=== PATIENT | male | born 1945 | race Caucasian/White ===

== ENCOUNTER → 2017-05-25 | Outpatient (CLI) | payer MEDICARE, OTHER ==
[~2017-05-25] MED LIST: ALBU90I INH; ALBU90OI INH; ALPR.25 PO; ALPR.5 PO; ASPI81CH PO; ASPI81EC; ASPI81EC PO; ATEN100 PO; ATEN50; ATOR80 PO; AZIT250 PO; Acetaminophen650 M1 PO; BENZ100A PO; CARV25 PO; CARV6.25 PO; CHILDREN'S AL12.5 M1 PO; CLAR500; CLOP75 PO; COREG PO; Citalopram HBr10 MG PO; DIGO.125 PO; DIPH50 PO; DOCU100 PO; Diphenhist25 MG PO; FURO20 PO; HYDACE5 PO; LANOXIN125 MCG; LAVAP17G PO; LOSA25 PO; LOSA50 PO; MELA3 PO; NAPR250 PO; Norco 5-325 Ta1 EACH PO; OSEL75CA PO; OXYACE5T PO; PHYT5; POTCHL20ER PO; PRED10 PO; Prednisone20 MG PO; RANI150 PO; SIMV40 PO; SIMV80 PO; SPACER IH; TERB250 PO; TRIA80TC TOP; TROSPIUM CHLORI20 MG PO; VERA80 PO; WARF2.5 PO; WARF5 PO; Zithromax250 MG PO; [UNRECOGNIZED DRUG - REMARK]; [UNRECOGNIZED DRUG - REMARK]
== END | disposition home or self-care (01) ==
LOC: LAB 13:22 → LAB SHORT 13:22
DX: L08.0 Pyoderma (principal)
CPT/HCPCS: 87070; 87205

== ENCOUNTER 2017-06-20 10:22 | Inpatient (IN) | payer MEDICARE, OTHER ==
[~2017-06-20] VITALS: Ht 165.1 cm; Wt 79.4 kg
[~2017-06-20 10:22] MED LIST changes: -Acetaminophen650 M1 PO; -CHILDREN'S AL12.5 M1 PO; -Citalopram HBr10 MG PO; -MELA3 PO; -Norco 5-325 Ta1 EACH PO; -PHYT5
[2017-06-20 13:45] LABS: BASOPHILS ABSOLUTE AUTO 0.01 K/mm3 (0.00-0.23); BASOPHILS PERCENT AUTO 0 % (0-2); EOSINOPHILS PERCENT AUTO 0 % (0-6); Hematocrit 35.7 % (37.0-53.0); Hemoglobin 10.3 g/dL (13.5-17.5); IMMATURE GRAN ABSOLUTE AUTO 0.03 K/mm3 (0.00-0.10); IMMATURE GRAN PERCENT AUTO 0 % (0-1); LYMPHOCYTES ABSOLUTE AUTO 1.03 K/mm3 (0.84-5.20); LYMPHOCYTES PERCENT AUTO 15 % (21-46); MONOCYTES ABSOLUTE AUTO 0.59 K/mm3 (0.16-1.47); MONOCYTES PERCENT AUTO 9 % (4-13); Mean Corpuscular HGB 21.5 pg (26.0-34.0); Mean Corpuscular HGB Conc 28.9 g/dL (31.5-36.5); Mean Corpuscular Volume 75 fL (80-100); Mean Platelet Volume 10.4 fL (9.1-12.4); NEUTROPHILS PERCENT AUTO 76 % (41-73); Platelet Count 149 K/mm3 (150-400); RDW Coefficient Variation 17.2 % (11.7-14.2); RDW Standard Deviation 46.2 fL (35.1-46.3); Red Blood Cell Count 4.79 M/mm3 (4.30-5.90); White Blood Cell Count 6.76 K/mm3 (4.00-11.30)
[2017-06-20 14:04] LABS: Alanine Aminotransfer (ALT/SGP 14 U/L (12-78); Albumin, Blood 3.5 g/dL (3.4-5.0); Albumin/Globulin Ratio 1.1 (0.8-1.8); Alk Phos 102 U/L (50-136); Anion Gap 5 mmol/L (6-16); Aspartate Aminotrans (AST/SGOT 11 U/L (12-37); Bilirubin, Total 0.7 mg/dL (0.1-1.0); Blood Urea Nitrogen 15 mg/dL (8-24); Bun/Creatinine Ratio 13.5 (12.0-20.0); CO2, Blood 27 mmol/L (21-32); Chloride, Blood 109 mmol/L (98-108); Creatinine, Blood 1.11 mg/dL (0.60-1.20); Globulin, Blood 3.3 g/dL (2.2-4.0); Glomerular Filtration Rate >60 (60-); Glucose, Blood 104 mg/dL (70-99); Potassium, Blood 4.1 mmol/L (3.5-5.5); Sodium, Blood 141 mmol/L (136-145); Total Protein, Blood 6.8 g/dL (6.4-8.2)
[2017-06-20 15:10] LABS: International Normalized Ratio 3.7; Prothrombin Time Results 40.1 Sec (9.7-11.5)
[2017-06-21 08:34] LABS: BASOPHILS PERCENT AUTO 0 % (0-2); EOSINOPHILS PERCENT AUTO 0 % (0-6); Hematocrit 36.7 % (37.0-53.0); Hemoglobin 10.8 g/dL (13.5-17.5); IMMATURE GRAN ABSOLUTE AUTO 0.03 K/mm3 (0.00-0.10); IMMATURE GRAN PERCENT AUTO 0 % (0-1); LYMPHOCYTES ABSOLUTE AUTO 1.11 K/mm3 (0.84-5.20); LYMPHOCYTES PERCENT AUTO 16 % (21-46); MONOCYTES ABSOLUTE AUTO 0.72 K/mm3 (0.16-1.47); MONOCYTES PERCENT AUTO 11 % (4-13); Mean Corpuscular HGB 21.8 pg (26.0-34.0); Mean Corpuscular HGB Conc 29.4 g/dL (31.5-36.5); Mean Corpuscular Volume 74 fL (80-100); Mean Platelet Volume 10.1 fL (9.1-12.4); NEUTROPHILS ABSOLUTE AUTO 5.01 K/mm3 (1.96-9.15); NEUTROPHILS PERCENT AUTO 73 % (41-73); Platelet Count 142 K/mm3 (150-400); RDW Coefficient Variation 17.2 % (11.7-14.2); RDW Standard Deviation 45.8 fL (35.1-46.3); Red Blood Cell Count 4.95 M/mm3 (4.30-5.90); White Blood Cell Count 6.87 K/mm3 (4.00-11.30)
[2017-06-21 08:46] LABS: International Normalized Ratio 1.74; Prothrombin Time Results 18.4 Sec (9.7-11.5)
[2017-06-21 08:52] LABS: Alanine Aminotransfer (ALT/SGP 15 U/L (12-78); Albumin, Blood 3.6 g/dL (3.4-5.0); Albumin/Globulin Ratio 1.1 (0.8-1.8); Alk Phos 99 U/L (50-136); Anion Gap 5 mmol/L (6-16); Aspartate Aminotrans (AST/SGOT 13 U/L (12-37); Blood Urea Nitrogen 17 mg/dL (8-24); CO2, Blood 25 mmol/L (21-32); Chloride, Blood 109 mmol/L (98-108); Globulin, Blood 3.2 g/dL (2.2-4.0); Glomerular Filtration Rate >60 (60-); Glucose, Blood 93 mg/dL (70-99); Sodium, Blood 139 mmol/L (136-145); Total Protein, Blood 6.8 g/dL (6.4-8.2)
[2017-06-21 15:18] LABS: International Normalized Ratio 1.53; Prothrombin Time Results 16.1 Sec (9.7-11.5)
[2017-06-22 05:43] LABS: BASOPHILS ABSOLUTE AUTO 0.01 K/mm3 (0.00-0.23); BASOPHILS PERCENT AUTO 0 % (0-2); EOSINOPHILS PERCENT AUTO 0 % (0-6); Hematocrit 36.3 % (37.0-53.0); Hemoglobin 10.5 g/dL (13.5-17.5); IMMATURE GRAN ABSOLUTE AUTO 0.02 K/mm3 (0.00-0.10); IMMATURE GRAN PERCENT AUTO 0 % (0-1); LYMPHOCYTES ABSOLUTE AUTO 1.12 K/mm3 (0.84-5.20); LYMPHOCYTES PERCENT AUTO 16 % (21-46); MONOCYTES ABSOLUTE AUTO 0.68 K/mm3 (0.16-1.47); MONOCYTES PERCENT AUTO 10 % (4-13); Mean Corpuscular HGB 21.6 pg (26.0-34.0); Mean Corpuscular HGB Conc 28.9 g/dL (31.5-36.5); Mean Corpuscular Volume 75 fL (80-100); Mean Platelet Volume 10.4 fL (9.1-12.4); NEUTROPHILS ABSOLUTE AUTO 5.25 K/mm3 (1.96-9.15); NEUTROPHILS PERCENT AUTO 74 % (41-73); Platelet Count 139 K/mm3 (150-400); RDW Coefficient Variation 17.2 % (11.7-14.2); RDW Standard Deviation 46.3 fL (35.1-46.3); Red Blood Cell Count 4.87 M/mm3 (4.30-5.90); White Blood Cell Count 7.08 K/mm3 (4.00-11.30)
[2017-06-22 05:57] LABS: International Normalized Ratio 1.27; Prothrombin Time Results 13.3 Sec (9.7-11.5)
[2017-06-22 06:03] LABS: Alanine Aminotransfer (ALT/SGP 14 U/L (12-78); Albumin, Blood 3.5 g/dL (3.4-5.0); Albumin/Globulin Ratio 1.2 (0.8-1.8); Alk Phos 93 U/L (50-136); Anion Gap 7 mmol/L (6-16); Aspartate Aminotrans (AST/SGOT 13 U/L (12-37); Bilirubin, Total 0.9 mg/dL (0.1-1.0); Blood Urea Nitrogen 17 mg/dL (8-24); Bun/Creatinine Ratio 15.7 (12.0-20.0); CO2, Blood 24 mmol/L (21-32); Calcium, Blood 8.1 mg/dL (8.5-10.1); Chloride, Blood 109 mmol/L (98-108); Creatinine, Blood 1.08 mg/dL (0.60-1.20); Glomerular Filtration Rate >60 (60-); Glucose, Blood 82 mg/dL (70-99); Potassium, Blood 4.1 mmol/L (3.5-5.5); Sodium, Blood 140 mmol/L (136-145); Total Protein, Blood 6.5 g/dL (6.4-8.2)
[2017-06-23 05:14] LABS: BASOPHILS ABSOLUTE AUTO 0.01 K/mm3 (0.00-0.23); BASOPHILS PERCENT AUTO 0 % (0-2); EOSINOPHILS PERCENT AUTO 0 % (0-6); Hematocrit 31.2 % (37.0-53.0); Hemoglobin 9.2 g/dL (13.5-17.5); IMMATURE GRAN ABSOLUTE AUTO 0.05 K/mm3 (0.00-0.10); IMMATURE GRAN PERCENT AUTO 0 % (0-1); LYMPHOCYTES ABSOLUTE AUTO 0.79 K/mm3 (0.84-5.20); LYMPHOCYTES PERCENT AUTO 5 % (21-46); MONOCYTES ABSOLUTE AUTO 1.39 K/mm3 (0.16-1.47); MONOCYTES PERCENT AUTO 9 % (4-13); Mean Corpuscular HGB 21.9 pg (26.0-34.0); Mean Corpuscular HGB Conc 29.5 g/dL (31.5-36.5); Mean Corpuscular Volume 74 fL (80-100); Mean Platelet Volume 11.4 fL (9.1-12.4); NEUTROPHILS ABSOLUTE AUTO 12.52 K/mm3 (1.96-9.15); NEUTROPHILS PERCENT AUTO 85 % (41-73); Platelet Count 147 K/mm3 (150-400); RDW Coefficient Variation 17.4 % (11.7-14.2); RDW Standard Deviation 46.2 fL (35.1-46.3); White Blood Cell Count 14.76 K/mm3 (4.00-11.30)
[2017-06-23 05:30] LABS: International Normalized Ratio 1.17; Prothrombin Time Results 12.2 Sec (9.7-11.5)
[2017-06-23 05:46] LABS: Anion Gap 7 mmol/L (6-16); Blood Urea Nitrogen 20 mg/dL (8-24); Bun/Creatinine Ratio 18.7 (12.0-20.0); CO2, Blood 23 mmol/L (21-32); Calcium, Blood 7.9 mg/dL (8.5-10.1); Chloride, Blood 106 mmol/L (98-108); Creatinine, Blood 1.07 mg/dL (0.60-1.20); Glomerular Filtration Rate >60 (60-); Glucose, Blood 105 mg/dL (70-99); Potassium, Blood 4.6 mmol/L (3.5-5.5); Sodium, Blood 136 mmol/L (136-145)
[2017-06-24 04:51] LABS: International Normalized Ratio 1.51; Prothrombin Time Results 15.9 Sec (9.7-11.5)
[2017-06-25 05:09] LABS: International Normalized Ratio 1.89; Prothrombin Time Results 20.1 Sec (9.7-11.5)
[2017-06-26 04:36] LABS: International Normalized Ratio 2.51; Prothrombin Time Results 26.9 Sec (9.7-11.5)
[2017-10-01] MEDS ORDERED: WARF2.5 PO (18:26)
[2017-10-01] MEDS ORDERED: CLOP75 PO (18:26)
[2017-10-01] MEDS ORDERED: Citalopram HBr10 MG PO (18:27)
[2017-10-01] MEDS ORDERED: MELA3 PO (18:27)
[2017-10-01] MEDS ORDERED: Acetaminophen650 M1 PO (18:28)
[2017-10-01] MEDS ORDERED: CHILDREN'S AL12.5 M1 PO (18:29)
[2017-10-29] MEDS ORDERED: Norco 5-325 Ta1 EACH PO (11:42)
== END 2017-06-26 11:00 | DRG 470 ==
LOC: ORSCMMR 10:22 → SURS 10:22 → ORSCMMR 17:11 → SURS 17:11 → ORD 06-22 07:30 → ORSCMMR 06-22 07:30 → SURS 06-26 11:00 → ORD 06-29 11:00
PROVIDERS: Hospitalist; Orthopaedic Surgery; Pharmacist
PROC: 0SRC0J9 Replacement of Right Knee Joint with Synthetic Substitute, Cemented, Open Approach (ICD-10-PCS; principal; 2017-06-22 07:30)
DX: M17.11 Unilateral primary osteoarthritis, right knee (principal); I48.2 Chronic atrial fibrillation; F41.9 Anxiety disorder, unspecified; I10 Essential (primary) hypertension; Z79.01 Long term (current) use of anticoagulants; Z86.73 Personal history of transient ischemic attack (TIA), and cerebral infarction without residual deficits; Z88.0 Allergy status to penicillin; Z88.8 Allergy status to other drugs, medicaments and biological substances; Z79.02 Long term (current) use of antithrombotics/antiplatelets; Z79.82 Long term (current) use of aspirin; Z79.899 Other long term (current) drug therapy; Z95.2 Presence of prosthetic heart valve
CPT/HCPCS: 36415; 71046; 73560-RT; 74230; 80048; 80053; 82947; 85025; 85610; 85730; 88300; 92610; 92611; 94762; 97110; 97116; 97161; 97166; 97530; 97535; C1713; C1776; G8978; G8979; G8987; G8988; G8996; G8997; G8998; J0171; J0735; J1100; J1644; J1885; J2370; J2405; J2795; J3010; J7040; J7120

== ENCOUNTER 2017-06-30 11:38 | Inpatient (IN) | payer MEDICARE, OTHER ==
[~2017-06-30] VITALS: Ht 185.4 cm; Wt 74.7 kg
[2017-06-30] MEDS ORDERED: PHYT5 (11:53)
[2017-06-30 12:31] LABS: BASOPHILS ABSOLUTE AUTO 0.01 K/mm3 (0.00-0.23); BASOPHILS PERCENT AUTO 0 % (0-2); EOSINOPHILS PERCENT AUTO 0 % (0-6); Hematocrit 25.2 % (37.0-53.0); Hemoglobin 7.3 g/dL (13.5-17.5); IMMATURE GRAN ABSOLUTE AUTO 0.14 K/mm3 (0.00-0.10); IMMATURE GRAN PERCENT AUTO 1 % (0-1); LYMPHOCYTES ABSOLUTE AUTO 0.53 K/mm3 (0.84-5.20); LYMPHOCYTES PERCENT AUTO 5 % (21-46); MONOCYTES PERCENT AUTO 10 % (4-13); Mean Corpuscular HGB 21.9 pg (26.0-34.0); Mean Corpuscular Volume 76 fL (80-100); Mean Platelet Volume 10.5 fL (9.1-12.4); NEUTROPHILS ABSOLUTE AUTO 8.65 K/mm3 (1.96-9.15); NEUTROPHILS PERCENT AUTO 84 % (41-73); Platelet Count 223 K/mm3 (150-400); RDW Coefficient Variation 18.9 % (11.7-14.2); RDW Standard Deviation 51.2 fL (35.1-46.3); Red Blood Cell Count 3.33 M/mm3 (4.30-5.90); White Blood Cell Count 10.33 K/mm3 (4.00-11.30)
[2017-06-30 12:42] LABS: International Normalized Ratio 2.14; Prothrombin Time Results 22.8 Sec (9.7-11.5)
[2017-06-30 12:49] LABS: Alanine Aminotransfer (ALT/SGP 28 U/L (12-78); Albumin, Blood 2.9 g/dL (3.4-5.0); Albumin/Globulin Ratio 0.8 (0.8-1.8); Alk Phos 306 U/L (50-136); Anion Gap 7 mmol/L (6-16); Aspartate Aminotrans (AST/SGOT 28 U/L (12-37); Bilirubin, Total 1.7 mg/dL (0.1-1.0); Blood Urea Nitrogen 24 mg/dL (8-24); Bun/Creatinine Ratio 23.5 (12.0-20.0); CO2, Blood 26 mmol/L (21-32); Calcium, Blood 7.9 mg/dL (8.5-10.1); Chloride, Blood 103 mmol/L (98-108); Creatinine, Blood 1.02 mg/dL (0.60-1.20); Globulin, Blood 3.5 g/dL (2.2-4.0); Glomerular Filtration Rate >60 (60-); Glucose, Blood 104 mg/dL (70-99); Potassium, Blood 4.7 mmol/L (3.5-5.5); Sodium, Blood 136 mmol/L (136-145); Total Protein, Blood 6.4 g/dL (6.4-8.2); Troponin I <0.015 ng/mL (0.000-0.040)
[2017-06-30 12:52] LABS: Thyroid Stimulating Hormone 0.929 uIU/mL (0.360-4.800)
[2017-07-01 00:51] LABS: Hemoglobin 8.8 g/dL (13.5-17.5)
[2017-07-01 04:04] LABS: BASOPHILS ABSOLUTE AUTO 0.01 K/mm3 (0.00-0.23); BASOPHILS PERCENT AUTO 0 % (0-2); EOSINOPHILS PERCENT AUTO 0 % (0-6); Hematocrit 29.7 % (37.0-53.0); Hemoglobin 9.1 g/dL (13.5-17.5); IMMATURE GRAN ABSOLUTE AUTO 0.24 K/mm3 (0.00-0.10); IMMATURE GRAN PERCENT AUTO 3 % (0-1); LYMPHOCYTES ABSOLUTE AUTO 0.59 K/mm3 (0.84-5.20); LYMPHOCYTES PERCENT AUTO 7 % (21-46); MONOCYTES PERCENT AUTO 11 % (4-13); Mean Corpuscular HGB 23.4 pg (26.0-34.0); Mean Corpuscular HGB Conc 30.6 g/dL (31.5-36.5); Mean Corpuscular Volume 76 fL (80-100); Mean Platelet Volume 10.3 fL (9.1-12.4); NEUTROPHILS ABSOLUTE AUTO 7.21 K/mm3 (1.96-9.15); NEUTROPHILS PERCENT AUTO 80 % (41-73); NRBC ABSOLUTE 0.03 K/mm3 (0.00-0.02); NRBC Auto 0.3 /100 WBC (0.0-0.2); Platelet Count 227 K/mm3 (150-400); RDW Coefficient Variation 18.1 % (11.7-14.2); RDW Standard Deviation 49.4 fL (35.1-46.3); Red Blood Cell Count 3.89 M/mm3 (4.30-5.90); White Blood Cell Count 9.05 K/mm3 (4.00-11.30)
[2017-07-01 04:14] LABS: International Normalized Ratio 1.6; Prothrombin Time Results 16.9 Sec (9.7-11.5)
[2017-07-01 04:32] LABS: Albumin, Blood 2.9 g/dL (3.4-5.0); Anion Gap 8 mmol/L (6-16); Blood Urea Nitrogen 24 mg/dL (8-24); Bun/Creatinine Ratio 20.7 (12.0-20.0); CO2, Blood 26 mmol/L (21-32); Calcium, Blood 7.9 mg/dL (8.5-10.1); Chloride, Blood 102 mmol/L (98-108); Creatinine, Blood 1.16 mg/dL (0.60-1.20); Glomerular Filtration Rate >60 (60-); Glucose, Blood 91 mg/dL (70-99); Phosphorus, Blood 2.9 mg/dL (2.5-4.9); Potassium, Blood 4.4 mmol/L (3.5-5.5); Sodium, Blood 136 mmol/L (136-145)
[2017-07-01 13:18] LABS: Hematocrit 31.5 % (37.0-53.0); Hemoglobin 9.5 g/dL (13.5-17.5)
[2017-07-01 18:49] LABS: Hematocrit 29.8 % (37.0-53.0); Hemoglobin 9.1 g/dL (13.5-17.5)
[2017-07-02 04:33] LABS: BASOPHILS PERCENT AUTO 0 % (0-2); EOSINOPHILS PERCENT AUTO 0 % (0-6); Hematocrit 30.1 % (37.0-53.0); Hemoglobin 9.1 g/dL (13.5-17.5); IMMATURE GRAN ABSOLUTE AUTO 0.15 K/mm3 (0.00-0.10); IMMATURE GRAN PERCENT AUTO 2 % (0-1); LYMPHOCYTES ABSOLUTE AUTO 0.83 K/mm3 (0.84-5.20); LYMPHOCYTES PERCENT AUTO 9 % (21-46); MONOCYTES ABSOLUTE AUTO 0.95 K/mm3 (0.16-1.47); MONOCYTES PERCENT AUTO 10 % (4-13); Mean Corpuscular HGB 23.3 pg (26.0-34.0); Mean Corpuscular HGB Conc 30.2 g/dL (31.5-36.5); Mean Corpuscular Volume 77 fL (80-100); NEUTROPHILS ABSOLUTE AUTO 7.64 K/mm3 (1.96-9.15); NEUTROPHILS PERCENT AUTO 80 % (41-73); Platelet Count 265 K/mm3 (150-400); RDW Coefficient Variation 18.7 % (11.7-14.2); RDW Standard Deviation 51.8 fL (35.1-46.3); White Blood Cell Count 9.57 K/mm3 (4.00-11.30)
[2017-07-02 04:57] LABS: Albumin, Blood 2.8 g/dL (3.4-5.0); Anion Gap 11 mmol/L (6-16); Blood Urea Nitrogen 22 mg/dL (8-24); Bun/Creatinine Ratio 21.2 (12.0-20.0); CO2, Blood 26 mmol/L (21-32); Calcium, Blood 7.9 mg/dL (8.5-10.1); Chloride, Blood 104 mmol/L (98-108); Creatinine, Blood 1.04 mg/dL (0.60-1.20); Glomerular Filtration Rate >60 (60-); Glucose, Blood 81 mg/dL (70-99); Phosphorus, Blood 2.5 mg/dL (2.5-4.9); Potassium, Blood 4.3 mmol/L (3.5-5.5); Sodium, Blood 141 mmol/L (136-145)
[2017-07-02 14:17] LABS: Stool Occult Blood Guaiac 1 Neg (Neg)
== END 2017-07-02 15:43 | DRG 812 ==
LOC: ER 11:38 → PCU 11:39 → SURS 14:42 → PCU 14:42 → SURS 16:59
PROVIDERS: Emergency Medicine; Family Medicine; Internal Medicine Gastroenterology
PROC: 0DB68ZX Excision of Stomach, Via Natural or Artificial Opening Endoscopic, Diagnostic (ICD-10-PCS; principal; 2017-07-02 07:30)
PROC: 0DBL8ZX Excision of Transverse Colon, Via Natural or Artificial Opening Endoscopic, Diagnostic (ICD-10-PCS; 2017-07-02 07:30)
DX: D62 Acute posthemorrhagic anemia (principal); I27.20 Pulmonary hypertension, unspecified; I48.91 Unspecified atrial fibrillation; K92.2 Gastrointestinal hemorrhage, unspecified; M96.840 Postprocedural hematoma of a musculoskeletal structure following a musculoskeletal system procedure; I85.00 Esophageal varices without bleeding; I10 Essential (primary) hypertension; I25.2 Old myocardial infarction; F41.9 Anxiety disorder, unspecified; I25.10 Atherosclerotic heart disease of native coronary artery without angina pectoris; K31.7 Polyp of stomach and duodenum; K57.30 Diverticulosis of large intestine without perforation or abscess without bleeding; K64.8 Other hemorrhoids; K63.5 Polyp of colon; Z66 Do not resuscitate; Z96.651 Presence of right artificial knee joint; Z86.010 Personal history of colon polyps; Z79.01 Long term (current) use of anticoagulants; Z79.82 Long term (current) use of aspirin; Z86.73 Personal history of transient ischemic attack (TIA), and cerebral infarction without residual deficits; Z95.1 Presence of aortocoronary bypass graft; Z79.899 Other long term (current) drug therapy; Z88.0 Allergy status to penicillin; Z88.8 Allergy status to other drugs, medicaments and biological substances; Z95.2 Presence of prosthetic heart valve; Z95.0 Presence of cardiac pacemaker
CPT/HCPCS: 36415; 36430; 76882; 80053; 80069; 82270; 82607; 82746; 84443; 84484; 85014; 85018; 85025; 85610; 85730; 86850; 86900; 86901; 86923; 88305; 88342; 93005; 93010; 97116; 97162; 97530; 99285; G8978; G8979; J1644; J7030; J7040; J7120; P9016

== ENCOUNTER 2017-08-06 08:48 | Day surgery (SDC) | payer MEDICARE, OTHER ==
[~2017-08-06] VITALS: Ht 165.1 cm; Wt 75.8 kg
[~2017-08-06 08:48] MED LIST changes: +PHYT5
== END 2017-08-06 22:52 | disposition home or self-care (01) ==
LOC: ORSCMMR 08:48 → ORSCSDS 09:30 → ORSCMMR 22:52
PROVIDERS: Orthopaedic Surgery
PROC: 2W1QX6Z Compression of Right Lower Leg using Pressure Dressing (ICD-10-PCS; principal; 2017-08-06 10:15)
PROC: 0SJC3ZZ Inspection of Right Knee Joint, Percutaneous Approach (ICD-10-PCS; principal; 2017-08-06 10:15)
DX: T81.89XA Other complications of procedures, not elsewhere classified, initial encounter (principal); T84.53XA Infection and inflammatory reaction due to internal right knee prosthesis, initial encounter; Z96.651 Presence of right artificial knee joint; I10 Essential (primary) hypertension; I25.2 Old myocardial infarction; Z95.1 Presence of aortocoronary bypass graft; Z95.2 Presence of prosthetic heart valve; Z95.0 Presence of cardiac pacemaker; E78.5 Hyperlipidemia, unspecified; I48.91 Unspecified atrial fibrillation; N40.0 Benign prostatic hyperplasia without lower urinary tract symptoms; J45.909 Unspecified asthma, uncomplicated; Z79.01 Long term (current) use of anticoagulants; Z79.899 Other long term (current) drug therapy
CPT/HCPCS: 87070; 87075; 87205; J1100; J2370; J2405; J7120

== ENCOUNTER 2019-02-02 11:21 | Observation (INO) | payer MEDICARE, OTHER ==
[~2019-02-02] VITALS: Ht 165.1 cm; Wt 79.4 kg
[2019-02-02 12:19] LABS: BASOPHILS PERCENT AUTO 0 % (0-2); EOSINOPHILS PERCENT AUTO 0 % (0-6); Hematocrit 29.5 % (37.0-53.0); Hemoglobin 7.6 g/dL (13.5-17.5); IMMATURE GRAN ABSOLUTE AUTO 0.04 K/mm3 (0.00-0.10); IMMATURE GRAN PERCENT AUTO 1 % (0-1); LYMPHOCYTES ABSOLUTE AUTO 0.85 K/mm3 (0.84-5.20); LYMPHOCYTES PERCENT AUTO 13 % (21-46); MONOCYTES ABSOLUTE AUTO 0.78 K/mm3 (0.16-1.47); MONOCYTES PERCENT AUTO 12 % (4-13); Mean Corpuscular HGB 17.5 pg (26.0-34.0); Mean Corpuscular HGB Conc 25.8 g/dL (31.5-36.5); Mean Corpuscular Volume 68 fL (80-100); Mean Platelet Volume 10.6 fL (9.1-12.4); NEUTROPHILS ABSOLUTE AUTO 4.73 K/mm3 (1.96-9.15); NEUTROPHILS PERCENT AUTO 74 % (41-73); Platelet Count 182 K/mm3 (150-400); RDW Coefficient Variation 20.2 % (11.7-14.2); RDW Standard Deviation 48.6 fL (35.1-46.3); Red Blood Cell Count 4.35 M/mm3 (4.30-5.90)
[2019-02-02 12:42] LABS: Alanine Aminotransfer (ALT/SGP 9 U/L (12-78); Albumin, Blood 3.7 g/dL (3.4-5.0); Albumin/Globulin Ratio 1.2 (0.8-1.8); Alk Phos 105 U/L (50-136); Anion Gap 5 mmol/L (6-16); Aspartate Aminotrans (AST/SGOT 11 U/L (12-37); Bilirubin, Total 0.6 mg/dL (0.1-1.0); Blood Urea Nitrogen 16 mg/dL (8-24); CO2, Blood 28 mmol/L (21-32); Chloride, Blood 109 mmol/L (98-108); Creatinine, Blood 1.14 mg/dL (0.60-1.20); Globulin, Blood 3.2 g/dL (2.2-4.0); Glomerular Filtration Rate >60 (60-); Glucose, Blood 81 mg/dL (70-99); Potassium, Blood 4.1 mmol/L (3.5-5.5); Sodium, Blood 142 mmol/L (136-145); Total Protein, Blood 6.9 g/dL (6.4-8.2); Troponin I 0.017 ng/mL (0.000-0.040)
[2019-02-02] MEDS ORDERED: Aspir 8181 MG PO (14:31)
[2019-02-02] MEDS ORDERED: Ventolin/Prove6.7 GM INH (14:32)
[2019-02-02] MEDS ORDERED: CYAN1000I IM (14:32)
[2019-02-02] MEDS ORDERED: Neurontin 100100 MG PO (14:33)
[2019-02-02] MEDS ORDERED: LANOXIN125 MCG PO (14:34)
[2019-02-02] MEDS ORDERED: CARV25 PO (14:34)
[2019-02-02] MEDS ORDERED: CLOP75 PO (14:35)
[2019-02-02 14:49] LABS: IMMATURE RETIC FRACTION 21.4 % (2.3-16.0); RETIC HGB EQUIVALENT 17.3 pg (28.20-36.60); RETICULOCYTE ABSOLUTE 0.0592 M/mm3 (0.0200-0.1100); RETICULOCYTE COUNT PERCENT 1.44 % (0.50-2.50)
[2019-02-02] MEDS ORDERED: WARF2.5 PO (14:53)
[2019-02-02] MEDS ORDERED: WARF5 PO (14:53)
[2019-02-02] MEDS ORDERED: LOSA50 PO (14:55)
[2019-02-02] MEDS ORDERED: ATOR80 PO (14:55)
[2019-02-02] MEDS ORDERED: ALPR.25 PO (14:56)
[2019-02-02] MEDS ORDERED: Citalopram HBr10 MG PO (14:56)
[2019-02-02] MEDS ORDERED: MELA3 PO (14:56)
[2019-02-02 14:57] LABS: International Normalized Ratio 3.21; Prothrombin Time Results 30.6 Sec (9.7-11.5)
[2019-02-02] MEDS ORDERED: ARTHRITIS PAIN650 MG PO (14:57)
[2019-02-02] MEDS ORDERED: Allergy25 M1 PO (14:58)
[2019-02-02] MEDS ORDERED: FURO20 PO (14:59)
[2019-02-02 15:00] LABS: Percent Saturation 2.2 % (20.0-50.0)
[2019-02-02] MEDS ORDERED: Klor-Con 1010 MEQ PO (15:00)
[2019-02-02] MEDS ORDERED: AMLO10 PO (15:01)
[2019-02-02] MEDS ORDERED: ANTI ITCH TOP (15:02)
--- NOTE | 2019-02-02 18:15 | NUR ---
SHIFT SUMMARY: PT ARRIVED TO ROOM AND WAS A STAND BY ASSIST TO TRANSFER FROM THE [facility] [place] TO THE BED. HE ARRIVED WITH BLOOD INFUSING. UPON INITIAL ASSESSMENT VSS AND LUNGS WERE CLEAR. AFTER 15 MINUTES LUNGS WERE WHEEZING AND PT WAS MILDY SOB. BLOOD WAS STOPPED AND CHARGE NURSE NOTIFIED. RATE WAS SLOWED. DR MAI WAS NOTIFIED AND GAVE ORDERS FOR 1 TIME DOSE OF IV LASIX. LASIX WAS GIVEN ORDERED, HOB WAS ELEVATED AND UPON NEXT ASSESSMENT WHEEZING HAD SUBSIDED AND PT NO LONGER HAD ANY SOB. THIS NURSE HAS OMID AT BEDSIDE SINCE ADMISSION. CHARGE NURSE WAS NOTIFED OF PT IMPROVEMENT AND BLOOD CONTINUES TO RUN ORDERED. PT HAS NO OTHER S/S OF AVERSE REACTION TO THE BLOOD. PT REMAINS A/O X 4 AT BASELINE AND HAS NO C/O PAIN, HE IS VERY PLEASANT AND COOPERATIVE WITH HIS CARE. HE USES THE URINAL AT THE BEDSIDE WITH X 1 ASSIST.
[2019-02-03 02:48] LABS: Hematocrit 32.9 % (37.0-53.0); Hemoglobin 8.9 g/dL (13.5-17.5)
[2019-02-03 03:00] LABS: International Normalized Ratio 2.84; Prothrombin Time Results 27.4 Sec (9.7-11.5)
--- NOTE | 2019-02-03 07:26 | NUR ---
SHIFT SUMMARY PT A/O NO C/O PAIN. RECEIVED 1 UNIT OF BLOOD WITH NO S/S OF TRANSFUSION REACTION AFTER THE TIME OF 1929. NO C/O CP. SBA C URINAL USE C FREQUENCY AND URGENCY BUT STATES IT'S KIND OF USUAL FOR HIM C THE FREQUENCY. ABLE TO SLEEP ON AND OFF T/O NIGHT. CALL LIGHT IN REACH.
[2019-02-03] MEDS ORDERED: FERSU300 PO (10:54)
--- NOTE | 2019-02-03 11:48 | NUR ---
Patient is sitting on a chair and alert. Patient openly shares about his family unit complications, his spiritual journey and his current medical issues. Patient tells me that he is being discharged soon and that he is excited to go home feeling much better. I listen empathically, hear confession and provide pastoral job counselor and prayer. Patient responds well and shows signs of catharsis and increased peace. Patient voices appreciation for the visit.
--- NOTE | 2019-02-03 12:40 | NUR ---
DISCHARGE SUMMARY PATIENT IS PLEASANT. ALERT AND ORIENTED. ALL INFORMATION GIVEN TO THE PATIENT PRIOR TO DISCHARGE. MEDICATIONS SENT TO THE PHARMACY. PATIENT IS BROUGHT TO THE CAR BY NURSE. IV HAD BEEN REMOVED.
== END 2019-02-03 12:25 | disposition home or self-care (01) ==
LOC: ER 11:21 → MEDS 11:22 → ENPENDDIS 02-03 10:29 → MEDS 02-03 12:25
PROVIDERS: Emergency Medicine; ADMIT Hospitalist
DX: D50.9 Iron deficiency anemia, unspecified (principal); R07.89 Other chest pain; I25.2 Old myocardial infarction; I10 Essential (primary) hypertension; Z95.2 Presence of prosthetic heart valve; Z88.0 Allergy status to penicillin; Z88.1 Allergy status to other antibiotic agents; Z88.8 Allergy status to other drugs, medicaments and biological substances; Z79.02 Long term (current) use of antithrombotics/antiplatelets; Z79.82 Long term (current) use of aspirin; Z79.899 Other long term (current) drug therapy
CPT/HCPCS: 36415; 36430; 71046; 80053; 82272; 82728; 83540; 83550; 84484; 85014; 85018; 85025; 85045; 85610; 86850; 86900; 86901; 86923; 93005; 93010; 99285-25; J1750; J1940; J2916; J7030; P9016

== ENCOUNTER 2019-04-09 05:32 | Observation (INO) | payer MEDICARE, OTHER ==
[~2019-04-09] VITALS: Ht 165.1 cm; Wt 72.6 kg
[~2019-04-09 05:32] MED LIST changes: +AMLO10 PO; +ANTI ITCH TOP; +ARTHRITIS PAIN650 MG PO; +Allergy25 M1 PO; +Aspir 8181 MG PO; +CYAN1000I IM; +Citalopram HBr10 MG PO; +FERSU300 PO; +Klor-Con 1010 MEQ PO; +LANOXIN125 MCG PO; +MELA3 PO; +Neurontin 100100 MG PO; +Ventolin/Prove6.7 GM INH
[2019-04-09 06:04] LABS: Hematocrit 38.7 % (37.0-53.0); Hemoglobin 11.5 g/dL (13.5-17.5); Mean Corpuscular HGB 24.1 pg (26.0-34.0); Mean Corpuscular HGB Conc 29.7 g/dL (31.5-36.5); Mean Corpuscular Volume 81 fL (80-100); Mean Platelet Volume 9.8 fL (9.1-12.4); Platelet Count 150 K/mm3 (150-400); RDW Standard Deviation 64.1 fL (35.1-46.3); Red Blood Cell Count 4.77 M/mm3 (4.30-5.90); White Blood Cell Count 7.28 K/mm3 (4.00-11.30)
[2019-04-09] MEDS ORDERED: AMLO5 (06:10)
[2019-04-09 06:21] LABS: BAND PERCENT MAN 7 % (0-8); BASOPHILS PERCENT MAN 0 % (0-2); EOSINOPHILS PERCENT MAN 0 % (0-6); LYMPHOCYTES PERCENT MAN 11 % (21-46); MONOCYTES ABSOLUTE MAN 0.58 K/mm3 (0.16-1.47); MONOCYTES PERCENT MAN 8 % (4-13); NEUTROPHILS ABSOLUTE MAN 5.89 K/mm3 (1.96-9.15); SEG NEUTROPHILS PERCENT MAN 74 % (41-73); TOTAL CELLS COUNTED 100
[2019-04-09 06:24] LABS: Alanine Aminotransfer (ALT/SGP 18 U/L (12-78); Albumin, Blood 3.8 g/dL (3.4-5.0); Albumin/Globulin Ratio 1.2 (0.8-1.8); Alk Phos 123 U/L (50-136); Anion Gap 5 mmol/L (6-16); Aspartate Aminotrans (AST/SGOT 16 U/L (12-37); Blood Urea Nitrogen 15 mg/dL (8-24); Bun/Creatinine Ratio 14.7 (12.0-20.0); CO2, Blood 28 mmol/L (21-32); Calcium, Blood 8.1 mg/dL (8.5-10.1); Chloride, Blood 106 mmol/L (98-108); Creatinine, Blood 1.02 mg/dL (0.60-1.20); Globulin, Blood 3.3 g/dL (2.2-4.0); Glomerular Filtration Rate >60 (60-); Glucose, Blood 101 mg/dL (70-99); Potassium, Blood 4.2 mmol/L (3.5-5.5); Sodium, Blood 139 mmol/L (136-145); Total Protein, Blood 7.1 g/dL (6.4-8.2); Troponin I <0.015 ng/mL (0.000-0.040)
[2019-04-09 11:25] LABS: International Normalized Ratio 3.27; Prothrombin Time Results 32.7 Sec (9.7-11.5)
[2019-04-09 12:03] LABS: Adenovirus Not Detected (NOT DETECT); Bordetella pertussis Not Detected (NOT DETECT); Chlamydophila pneumoniae Not Detected (NOT DETECT); Coronavirus 229E Not Detected (NOT DETECT); Coronavirus HKU1 Not Detected (NOT DETECT); Coronavirus NL63 Not Detected (NOT DETECT); Coronavirus OC43 Not Detected (NOT DETECT); Human Metapneumovirus Not Detected (NOT DETECT); Human Rhinovirus/Enterovirus Not Detected (NOT DETECT); Influenza A Not Detected (NOT DETECT); Influenza B Not Detected (NOT DETECT); Mycoplasma pneumoniae Not Detected (NOT DETECT); Parainfluenza Virus 1 Not Detected (NOT DETECT); Parainfluenza Virus 2 Not Detected (NOT DETECT); Parainfluenza Virus 3 Not Detected (NOT DETECT); Parainfluenza Virus 4 Not Detected (NOT DETECT); Respiratory Syncytial Virus Not Detected (NOT DETECT)
--- NOTE | 2019-04-09 18:03 | NUR ---
NEW ADMIT TODAY, PATIENT STATES HE IS FEELING MUCH BETTER THIS EVENING. SOB AND ANXIETY HAVE REOLVED. LUNGS CLEAR AND DIMINISHED IN BASES, MAINTAINING SATS ON RA. USES URINAL INDEPENDENTLY AT BEDSIDE, URINATES FREQUENTLY. TOLERATING REGULAR DIET. SKIN INTACT. A-FIB ON TELE, OCCASIONALLY PACED. CALM AND COOPERATIVE WITH CARE, CALLS APPROPRIATELY FOR ASSISTANCE.
[2019-04-10 05:21] LABS: BASOPHILS ABSOLUTE AUTO 0.01 K/mm3 (0.00-0.23); BASOPHILS PERCENT AUTO 0 % (0-2); EOSINOPHILS PERCENT AUTO 0 % (0-6); Hematocrit 35.9 % (37.0-53.0); Hemoglobin 10.8 g/dL (13.5-17.5); IMMATURE GRAN ABSOLUTE AUTO 0.04 K/mm3 (0.00-0.10); IMMATURE GRAN PERCENT AUTO 0 % (0-1); LYMPHOCYTES ABSOLUTE AUTO 0.43 K/mm3 (0.84-5.20); LYMPHOCYTES PERCENT AUTO 4 % (21-46); MONOCYTES ABSOLUTE AUTO 0.33 K/mm3 (0.16-1.47); MONOCYTES PERCENT AUTO 3 % (4-13); Mean Corpuscular HGB 23.9 pg (26.0-34.0); Mean Corpuscular HGB Conc 30.1 g/dL (31.5-36.5); Mean Corpuscular Volume 79 fL (80-100); Mean Platelet Volume 9.4 fL (9.1-12.4); NEUTROPHILS ABSOLUTE AUTO 9.04 K/mm3 (1.96-9.15); NEUTROPHILS PERCENT AUTO 92 % (41-73); Platelet Count 150 K/mm3 (150-400); RDW Coefficient Variation 21.8 % (11.7-14.2); RDW Standard Deviation 62.1 fL (35.1-46.3); Red Blood Cell Count 4.52 M/mm3 (4.30-5.90); White Blood Cell Count 9.85 K/mm3 (4.00-11.30)
[2019-04-10 05:42] LABS: Anion Gap 5 mmol/L (6-16); Blood Urea Nitrogen 19 mg/dL (8-24); Bun/Creatinine Ratio 20.1 (12.0-20.0); CO2, Blood 28 mmol/L (21-32); Chloride, Blood 106 mmol/L (98-108); Creatinine, Blood 0.94 mg/dL (0.60-1.20); Glomerular Filtration Rate >60 (60-); Glucose, Blood 138 mg/dL (70-99); Sodium, Blood 139 mmol/L (136-145)
[2019-04-10 05:44] LABS: Prothrombin Time Results 49.4 Sec (9.7-11.5)
[2019-04-10 05:47] LABS: International Normalized Ratio 5.06
--- NOTE | 2019-04-10 07:00 | NUR ---
ASSUMED CARE OF PT- BEDSIDE REPORT COMPLETED WITH NIGHT RN GABRIELA. PER REPORT PT C/O UNTREATED BPH. PT STATED HE IS UP 5-6 TIMES PER NIGHT. PT IS CONTINENT OF BOWLE AND BLADDER AND IS INDEPENDENT AT THE BEDSIDE WITH A URINAL. PT HAS NO C/O PAIN. PT ON RA. POSSIBLE DISCHARGE TODAY.
[2019-04-10] MEDS ORDERED: ALBU2.5V5 INH (14:05)
[2019-04-10] MEDS ORDERED: GUAI600T33 PO (14:08)
[2019-04-10] MEDS ORDERED: COMBIVENT RESPIM4 GM (14:13)
[2019-04-10] MEDS ORDERED: FLUT1DIS5 INH (14:15)
[2019-04-10] MEDS ORDERED: Prednisone10 MG PO (14:17)
--- NOTE | 2019-04-10 16:00 | NUR ---
DISCHARGE NOTE- PT WAS GIVEN VERBAL AND WRITTEN DISCHARGE INSTRUCTIONS AND ACKNOWLEDGED UNDERSTANDING OF THEM. MEDS FAXED TO [facility] PER PT REQUEST. PT HAS ORDR FOR [facility]. GUY TO DELIVER WHEN THE PT ARRIVES HOME. PT IS AWARE.
== END 2019-04-10 16:49 | disposition home or self-care (01) ==
LOC: ER 05:32 → MEDS 05:33
PROVIDERS: Emergency Medicine; Nurse Practitioner Acute Care; ADMIT Family Medicine
DX: J44.1 Chronic obstructive pulmonary disease with (acute) exacerbation (principal); J96.01 Acute respiratory failure with hypoxia; I10 Essential (primary) hypertension; I25.10 Atherosclerotic heart disease of native coronary artery without angina pectoris; I25.2 Old myocardial infarction; F41.1 Generalized anxiety disorder; I48.20 Chronic atrial fibrillation, unspecified; R79.1 Abnormal coagulation profile; Z95.0 Presence of cardiac pacemaker; Z95.2 Presence of prosthetic heart valve; Z96.651 Presence of right artificial knee joint; Z90.49 Acquired absence of other specified parts of digestive tract; Z95.1 Presence of aortocoronary bypass graft; Z79.82 Long term (current) use of aspirin; Z79.01 Long term (current) use of anticoagulants; Z79.02 Long term (current) use of antithrombotics/antiplatelets; Z79.51 Long term (current) use of inhaled steroids; Z79.52 Long term (current) use of systemic steroids; Z79.899 Other long term (current) drug therapy; Z88.0 Allergy status to penicillin; Z88.6 Allergy status to analgesic agent; Z88.8 Allergy status to other drugs, medicaments and biological substances
CPT/HCPCS: 0099U; 36415; 71046; 80048; 80053; 83880; 84484; 85025; 85610; 93005; 93010; 94640; 94644; 94760; 96374; 96376; 99285-25; G0378; J2920; J2930

== ENCOUNTER 2019-04-24 13:23 | Emergency (ER) | payer MEDICARE, OTHER ==
[~2019-04-24] VITALS: Ht 165.1 cm; Wt 72.6 kg
[~2019-04-24 13:23] MED LIST changes: +ALBU2.5V5 INH; +AMLO5; +COMBIVENT RESPIM4 GM; +FLUT1DIS5 INH; +GUAI600T33 PO; +Prednisone10 MG PO
[2019-04-24 15:01] LABS: Source, Urine Catheter
[2019-04-24 15:12] LABS: Bilirubin, Urine Neg (Neg); Blood, Urine 5+ (Neg); Glucose Qualitative, Urine Neg (Neg); Ketones, Urine Neg (Neg); Leukocyte Esterase, Urine Neg (Neg); Nitrite, Urine Neg (Neg); Protein, Urine 1+ (Neg); Specific Gravity, Urine 1.015 (1.003-1.022); Urobilinogen, Urine NORM (Normal)
[2019-04-24 15:52] LABS: Appearance, Urine Hazy (Clear); Color, Urine Yellow (P-Yellow)
[2019-04-24 15:58] LABS: Bacteria Few /hpf; Red Blood Cells, Urine 50-100 /hpf (0-2); Squamous Epithelial Cells Rare /hpf (Few); White Blood Cells, Urine 0-2 /hpf (0-5)
[2019-04-24] MEDS ORDERED: Magnesium Citr296 ML PO (16:31)
[2019-04-24] MEDS ORDERED: FLOMAX0.4 MG PO (16:31)
== END 2019-04-24 17:17 | disposition home or self-care (01) ==
LOC: ER 13:23
PROVIDERS: Physician Assistant
DX: R33.9 Retention of urine, unspecified (principal); K59.00 Constipation, unspecified; Z88.0 Allergy status to penicillin; Z88.8 Allergy status to other drugs, medicaments and biological substances; Z79.899 Other long term (current) drug therapy; Z79.01 Long term (current) use of anticoagulants; Z79.82 Long term (current) use of aspirin; Z79.52 Long term (current) use of systemic steroids; I48.91 Unspecified atrial fibrillation; D64.9 Anemia, unspecified; I10 Essential (primary) hypertension; F41.9 Anxiety disorder, unspecified
CPT/HCPCS: 51702; 51798; 74018; 81001; 99283-25

== ENCOUNTER 2019-05-05 05:45 | Emergency (ER) | payer MEDICARE, OTHER ==
[~2019-05-05] VITALS: Ht 165.1 cm; Wt 71.2 kg
[~2019-05-05 05:45] MED LIST changes: +FLOMAX0.4 MG PO; +Magnesium Citr296 ML PO
[2019-05-05 06:18] LABS: Source, Urine Catheter
[2019-05-05 06:21] LABS: Bilirubin, Urine Neg (Neg); Blood, Urine 3+ (Neg); Glucose Qualitative, Urine Neg (Neg); Ketones, Urine Neg (Neg); Leukocyte Esterase, Urine Neg (Neg); Nitrite, Urine Neg (Neg); Protein, Urine Neg (Neg); Urobilinogen, Urine NORM (Normal)
[2019-05-05 06:31] LABS: Appearance, Urine Clear (Clear); Color, Urine Yellow (P-Yellow)
[2019-05-05 06:33] LABS: White Blood Cells, Urine 0-2 /hpf (0-5)
[2019-05-05 06:34] LABS: Bacteria Rare /hpf; Squamous Epithelial Cells Not Seen /hpf (Few)
== END 2019-05-05 08:30 | disposition home or self-care (01) ==
LOC: ER 05:45
PROVIDERS: Emergency Medicine
DX: R33.9 Retention of urine, unspecified (principal); Z88.0 Allergy status to penicillin; Z88.8 Allergy status to other drugs, medicaments and biological substances; Z79.82 Long term (current) use of aspirin; Z79.899 Other long term (current) drug therapy; I48.91 Unspecified atrial fibrillation; I10 Essential (primary) hypertension; I25.10 Atherosclerotic heart disease of native coronary artery without angina pectoris; F41.9 Anxiety disorder, unspecified
CPT/HCPCS: 51702; 51798; 81001; 99283-25

== ENCOUNTER 2019-05-23 21:45 | Emergency (ER) | payer MEDICARE, OTHER ==
[~2019-05-23] VITALS: Ht 165.1 cm; Wt 71.7 kg
[2019-05-23 22:56] LABS: BASOPHILS ABSOLUTE AUTO 0.01 K/mm3 (0.00-0.23); BASOPHILS PERCENT AUTO 0 % (0-2); EOSINOPHILS PERCENT AUTO 0 % (0-6); Hemoglobin 11.7 g/dL (13.5-17.5); IMMATURE GRAN ABSOLUTE AUTO 0.15 K/mm3 (0.00-0.10); IMMATURE GRAN PERCENT AUTO 1 % (0-1); LYMPHOCYTES ABSOLUTE AUTO 0.97 K/mm3 (0.84-5.20); LYMPHOCYTES PERCENT AUTO 7 % (21-46); MONOCYTES ABSOLUTE AUTO 1.02 K/mm3 (0.16-1.47); MONOCYTES PERCENT AUTO 7 % (4-13); Mean Corpuscular HGB 25.1 pg (26.0-34.0); Mean Corpuscular HGB Conc 30.8 g/dL (31.5-36.5); Mean Corpuscular Volume 82 fL (80-100); Mean Platelet Volume 9.6 fL (9.1-12.4); NEUTROPHILS ABSOLUTE AUTO 12.04 K/mm3 (1.96-9.15); NEUTROPHILS PERCENT AUTO 85 % (41-73); Platelet Count 188 K/mm3 (150-400); RDW Coefficient Variation 16.1 % (11.7-14.2); Red Blood Cell Count 4.66 M/mm3 (4.30-5.90); White Blood Cell Count 14.19 K/mm3 (4.00-11.30)
[2019-05-23 23:12] LABS: International Normalized Ratio 3.5; Prothrombin Time Results 34.9 Sec (9.7-11.5)
[2019-05-23 23:17] LABS: Alanine Aminotransfer (ALT/SGP 18 U/L (12-78); Albumin, Blood 3.7 g/dL (3.4-5.0); Alk Phos 117 U/L (50-136); Anion Gap 8 mmol/L (6-16); Aspartate Aminotrans (AST/SGOT 22 U/L (12-37); Bilirubin, Total 0.8 mg/dL (0.1-1.0); Blood Urea Nitrogen 14 mg/dL (8-24); Bun/Creatinine Ratio 14.4 (12.0-20.0); CO2, Blood 24 mmol/L (21-32); Calcium, Blood 8.5 mg/dL (8.5-10.1); Chloride, Blood 105 mmol/L (98-108); Creatinine, Blood 0.97 mg/dL (0.60-1.20); Globulin, Blood 3.6 g/dL (2.2-4.0); Glomerular Filtration Rate >60 (60-); Glucose, Blood 143 mg/dL (70-99); Potassium, Blood 4.1 mmol/L (3.5-5.5); Sodium, Blood 137 mmol/L (136-145); Total Protein, Blood 7.3 g/dL (6.4-8.2)
[2019-05-23 23:42] LABS: Source, Urine Clean Catch
[2019-05-23 23:54] LABS: Bilirubin, Urine Neg (Neg); Blood, Urine 5+ (Neg); Glucose Qualitative, Urine Neg (Neg); Ketones, Urine Neg (Neg); Leukocyte Esterase, Urine 1+ (Neg); Nitrite, Urine Neg (Neg); Protein, Urine 4+ (Neg); Specific Gravity, Urine 1.015 (1.003-1.022); Urobilinogen, Urine NORM (Normal); pH, Urine 6.5 (5.0-8.0)
[2019-05-24] LABS: Appearance, Urine Turbid (Clear); Bacteria Rare /hpf; Color, Urine Red (P-Yellow); Red Blood Cells, Urine TNTC /hpf (0-2); Squamous Epithelial Cells Rare /hpf (Few); White Blood Cells, Urine 0-2 /hpf (0-5)
[2019-05-24 05:01] LABS: BASOPHILS PERCENT AUTO 0 % (0-2); EOSINOPHILS PERCENT AUTO 0 % (0-6); Hematocrit 35.2 % (37.0-53.0); Hemoglobin 10.9 g/dL (13.5-17.5); IMMATURE GRAN ABSOLUTE AUTO 0.06 K/mm3 (0.00-0.10); IMMATURE GRAN PERCENT AUTO 1 % (0-1); LYMPHOCYTES ABSOLUTE AUTO 1.18 K/mm3 (0.84-5.20); LYMPHOCYTES PERCENT AUTO 11 % (21-46); MONOCYTES ABSOLUTE AUTO 0.98 K/mm3 (0.16-1.47); MONOCYTES PERCENT AUTO 9 % (4-13); Mean Corpuscular HGB 25.2 pg (26.0-34.0); Mean Corpuscular Volume 81 fL (80-100); Mean Platelet Volume 9.9 fL (9.1-12.4); NEUTROPHILS ABSOLUTE AUTO 8.63 K/mm3 (1.96-9.15); NEUTROPHILS PERCENT AUTO 80 % (41-73); Platelet Count 153 K/mm3 (150-400); RDW Coefficient Variation 15.9 % (11.7-14.2); RDW Standard Deviation 46.6 fL (35.1-46.3); Red Blood Cell Count 4.33 M/mm3 (4.30-5.90); White Blood Cell Count 10.85 K/mm3 (4.00-11.30)
== END 2019-05-24 08:10 | disposition home or self-care (01) ==
LOC: ER 21:45
PROVIDERS: Emergency Medicine; Physician Assistant
DX: R31.9 Hematuria, unspecified (principal); Z88.0 Allergy status to penicillin; Z79.82 Long term (current) use of aspirin; Z79.899 Other long term (current) drug therapy; I48.91 Unspecified atrial fibrillation; I10 Essential (primary) hypertension; I25.2 Old myocardial infarction
CPT/HCPCS: 36415; 51702; 51798; 80053; 81001; 85025; 85610; 85730; 87086; 99283-25

== ENCOUNTER 2019-08-04 10:35 | Emergency (ER) | payer MEDICARE, OTHER ==
[~2019-08-04] VITALS: Ht 165.1 cm; Wt 74.8 kg
[2019-08-04 12:06] LABS: Source, Urine Catheter
[2019-08-04 12:12] LABS: Blood, Urine 5+ (Neg); Glucose Qualitative, Urine Neg (Neg); Ketones, Urine Neg (Neg); Leukocyte Esterase, Urine 2+ (Neg); Nitrite, Urine Pos (Neg); Protein, Urine 3+ (Neg); Urobilinogen, Urine 2+ (Normal)
[2019-08-04 12:19] LABS: Bilirubin, Urine 2+ (Neg)
[2019-08-04 12:22] LABS: Appearance, Urine Hazy (Clear); Color, Urine Amber (P-Yellow)
[2019-08-04] MEDS ORDERED: KEFLEX500 MG PO (12:42)
== END 2019-08-04 13:37 | disposition home or self-care (01) ==
LOC: ER 10:35
PROVIDERS: Physician Assistant
DX: T83.098A Other mechanical complication of other urinary catheter, initial encounter (principal); N39.0 Urinary tract infection, site not specified; I10 Essential (primary) hypertension; F41.9 Anxiety disorder, unspecified; I25.2 Old myocardial infarction; I48.91 Unspecified atrial fibrillation; I25.10 Atherosclerotic heart disease of native coronary artery without angina pectoris; D64.9 Anemia, unspecified; Z88.0 Allergy status to penicillin; Z88.8 Allergy status to other drugs, medicaments and biological substances; Z79.82 Long term (current) use of aspirin; Z79.01 Long term (current) use of anticoagulants; Z79.899 Other long term (current) drug therapy
CPT/HCPCS: 51702; 87086; 99283-25

== ENCOUNTER 2019-08-06 15:06 | Emergency (ER) | payer MEDICARE, OTHER ==
[~2019-08-06] VITALS: Ht 165.1 cm; Wt 70.3 kg
[~2019-08-06 15:06] MED LIST changes: +KEFLEX500 MG PO
== END 2019-08-06 16:22 | disposition home or self-care (01) ==
LOC: ER 15:06
DX: R30.0 Dysuria (principal); D64.9 Anemia, unspecified; I10 Essential (primary) hypertension; I48.91 Unspecified atrial fibrillation; I25.10 Atherosclerotic heart disease of native coronary artery without angina pectoris; F41.9 Anxiety disorder, unspecified; I25.2 Old myocardial infarction; Z79.899 Other long term (current) drug therapy; Z79.01 Long term (current) use of anticoagulants
CPT/HCPCS: 99283

== ENCOUNTER 2019-08-23 08:20 | Emergency (ER) | payer MEDICARE, OTHER ==
[~2019-08-23] VITALS: Ht 165.1 cm; Wt 74.8 kg
[2019-08-23] MEDS ORDERED: Percocet 5-3251 EACH PO (14:02)
[2019-08-23] MEDS ORDERED: ONDA4 MM (14:02)
[2019-08-23 15:20] LABS: BASOPHILS ABSOLUTE AUTO 0.02 K/mm3 (0.00-0.23); BASOPHILS PERCENT AUTO 0 % (0-2); EOSINOPHILS PERCENT AUTO 0 % (0-6); Hematocrit 30.7 % (37.0-53.0); Hemoglobin 8.5 g/dL (13.5-17.5); IMMATURE GRAN ABSOLUTE AUTO 0.13 K/mm3 (0.00-0.10); IMMATURE GRAN PERCENT AUTO 1 % (0-1); LYMPHOCYTES ABSOLUTE AUTO 0.84 K/mm3 (0.84-5.20); LYMPHOCYTES PERCENT AUTO 5 % (21-46); MONOCYTES PERCENT AUTO 4 % (4-13); Mean Corpuscular HGB 20.4 pg (26.0-34.0); Mean Corpuscular HGB Conc 27.7 g/dL (31.5-36.5); Mean Corpuscular Volume 74 fL (80-100); Mean Platelet Volume 10.8 fL (9.1-12.4); NEUTROPHILS ABSOLUTE AUTO 13.83 K/mm3 (1.96-9.15); NEUTROPHILS PERCENT AUTO 90 % (41-73); Platelet Count 278 K/mm3 (150-400); RDW Coefficient Variation 16.8 % (11.7-14.2); RDW Standard Deviation 44.7 fL (35.1-46.3); Red Blood Cell Count 4.17 M/mm3 (4.30-5.90); White Blood Cell Count 15.42 K/mm3 (4.00-11.30)
[2019-08-23 15:25] LABS: Chloride (POC) 102 mmol/L (98-108); Creatinine (POC) 0.9 mg/dL (0.8-1.3); Glucose (ISTAT POC) 169 mg/dL (70-99); Hemoglobin (POC) 9.9 g/dL (13.5-17.5); Potassium (POC) 4.1 mmol/L (3.5-5.5); Sodium (POC) 137 mmol/L (135-148); Total CO2 (POC) 25 mmol/L (21-32)
[2019-08-23 15:39] LABS: Anion Gap 7 mmol/L (6-16); Blood Urea Nitrogen 16 mg/dL (8-24); Bun/Creatinine Ratio 16.4 (12.0-20.0); CO2, Blood 25 mmol/L (21-32); Calcium, Blood 7.9 mg/dL (8.5-10.1); Chloride, Blood 106 mmol/L (98-108); Creatinine, Blood 0.98 mg/dL (0.60-1.20); Glomerular Filtration Rate >60 (60-); Glucose, Blood 166 mg/dL (70-99); Potassium, Blood 4.1 mmol/L (3.5-5.5); Sodium, Blood 138 mmol/L (136-145)
[2019-08-23 15:42] LABS: Prothrombin Time Results 40.3 Sec (9.7-11.5)
[2019-08-23 15:45] LABS: International Normalized Ratio 4.08
== END 2019-08-23 18:45 | disposition short-term general hospital (02) ==
LOC: ER 08:20
PROVIDERS: Emergency Medicine
DX: T83.098A Other mechanical complication of other urinary catheter, initial encounter (principal); Z88.0 Allergy status to penicillin; Z88.8 Allergy status to other drugs, medicaments and biological substances; Z79.899 Other long term (current) drug therapy; Z79.82 Long term (current) use of aspirin; I48.91 Unspecified atrial fibrillation; I10 Essential (primary) hypertension; I25.2 Old myocardial infarction; D64.9 Anemia, unspecified; F41.9 Anxiety disorder, unspecified; I25.10 Atherosclerotic heart disease of native coronary artery without angina pectoris
CPT/HCPCS: 36415; 36430; 51700; 51702; 74176; 80047; 80048; 85014; 85025; 85610; 86900; 86901; 96374; 96375; 96376; 99284-25; J2270; J2405; P9059

== ENCOUNTER → 2019-10-13 | Outpatient (CLI) | payer MEDICARE, OTHER ==
[~2019-10-13] MED LIST changes: +ONDA4 MM; +Percocet 5-3251 EACH PO
[2019-10-13 11:39] LABS: Source, Urine Clean Catch
[2019-10-13 14:17] LABS: Bilirubin, Urine Neg (Neg); Blood, Urine 5+ (Neg); Glucose Qualitative, Urine Neg (Neg); Ketones, Urine 1+ (Neg); Leukocyte Esterase, Urine Neg (Neg); Nitrite, Urine Neg (Neg); Protein, Urine 4+ (Neg); Urobilinogen, Urine NORM (Normal)
[2019-10-13 14:34] LABS: Appearance, Urine Bloody (Clear); Color, Urine Red (P-Yellow)
[2019-10-13 14:35] LABS: Red Blood Cells, Urine TNTC /hpf (0-2)
[2019-10-13 14:36] LABS: Bacteria Few /hpf; Squamous Epithelial Cells Not Seen /hpf (Few)
== END | disposition home or self-care (01) ==
LOC: LAB 11:00 → LAB SHORT 11:00
PROVIDERS: Urology
DX: R30.0 Dysuria (principal)
CPT/HCPCS: 81001; 87086

== ENCOUNTER 2021-07-23 16:36 | Inpatient (IN) | payer MEDICARE, OTHER ==
[~2021-07-23] VITALS: Ht 165.1 cm; Wt 67.4 kg
[2021-07-23 17:01] LABS: BASOPHILS PERCENT AUTO 0 % (0-2); EOSINOPHILS PERCENT AUTO 0 % (0-6); Hematocrit 40.3 % (37.0-53.0); Hemoglobin 12.7 g/dL (13.5-17.5); IMMATURE GRAN ABSOLUTE AUTO 0.07 K/mm3 (0.00-0.10); IMMATURE GRAN PERCENT AUTO 1 % (0-1); LYMPHOCYTES ABSOLUTE AUTO 1.16 K/mm3 (0.84-5.20); LYMPHOCYTES PERCENT AUTO 15 % (21-46); MONOCYTES ABSOLUTE AUTO 0.64 K/mm3 (0.16-1.47); MONOCYTES PERCENT AUTO 8 % (4-13); Mean Corpuscular HGB 26.8 pg (26.0-34.0); Mean Corpuscular HGB Conc 31.5 g/dL (31.5-36.5); Mean Corpuscular Volume 85 fL (80-100); NEUTROPHILS PERCENT AUTO 77 % (41-73); Platelet Count 154 K/mm3 (150-400); RDW Coefficient Variation 15.2 % (11.7-14.2); RDW Standard Deviation 47.4 fL (35.1-46.3); Red Blood Cell Count 4.74 M/mm3 (4.30-5.90); White Blood Cell Count 7.97 K/mm3 (4.00-11.30)
[2021-07-23 17:15] LABS: Alanine Aminotransfer (ALT/SGP 17 U/L (12-78); Albumin, Blood 3.8 g/dL (3.4-5.0); Albumin/Globulin Ratio 1.2 (0.8-1.8); Alk Phos 128 U/L (50-136); Anion Gap 4 mmol/L (6-16); Aspartate Aminotrans (AST/SGOT 16 U/L (12-37); Blood Urea Nitrogen 13 mg/dL (8-24); Bun/Creatinine Ratio 16.5 (12.0-20.0); CO2, Blood 29 mmol/L (21-32); Calcium, Blood 8.6 mg/dL (8.5-10.1); Chloride, Blood 108 mmol/L (98-108); Creatinine, Blood 0.79 mg/dL (0.60-1.20); Globulin, Blood 3.3 g/dL (2.2-4.0); Glomerular Filtration Rate >60 (60-); Glucose, Blood 85 mg/dL (70-99); Potassium, Blood 3.8 mmol/L (3.5-5.5); Sodium, Blood 141 mmol/L (136-145); Total Protein, Blood 7.1 g/dL (6.4-8.2)
[2021-07-23 17:38] LABS: International Normalized Ratio 2.54; Prothrombin Time Results 25.1 Sec (9.7-11.5)
--- NOTE | 2021-07-23 23:45 | NUR ---
PT TAKEN TO CT VIA BED ON MONITOR. PT TOLERATED THE PROCEDURE WELL AND IS NOW BACK IN HIS ROOM. NO S/S OF ACUTE DISTRESS NOTED AT THIS TIME.
[2021-07-24 03:20] LABS: Hematocrit 37.6 % (37.0-53.0); Mean Corpuscular HGB Conc 31.9 g/dL (31.5-36.5); Mean Corpuscular Volume 85 fL (80-100); Mean Platelet Volume 10.9 fL (9.1-12.4); Platelet Count 122 K/mm3 (150-400); RDW Coefficient Variation 15.3 % (11.7-14.2); RDW Standard Deviation 46.8 fL (35.1-46.3); Red Blood Cell Count 4.44 M/mm3 (4.30-5.90)
[2021-07-24 03:33] LABS: Anion Gap 5 mmol/L (6-16); Blood Urea Nitrogen 14 mg/dL (8-24); Bun/Creatinine Ratio 18.3 (12.0-20.0); CO2, Blood 27 mmol/L (21-32); Chloride, Blood 108 mmol/L (98-108); Creatinine, Blood 0.77 mg/dL (0.60-1.20); Glomerular Filtration Rate >60 (60-); Glucose, Blood 93 mg/dL (70-99); Potassium, Blood 3.7 mmol/L (3.5-5.5); Sodium, Blood 140 mmol/L (136-145)
--- NOTE | 2021-07-24 04:05 | NUR ---
DR TELLEZ SPOKE TO PT SON VIA PHONE ABOUT MOST RECENT CT SCAN SHOWING WORSENING OF BRAIN BLEED WELL OPTIONS/INTERVENTIONS WELL PT WISHES REGARDING LIFE SUPPORT. PT REMAINS A FULL CODE AT THIS TIME.
--- NOTE | 2021-07-24 05:33 | NUR ---
SHIFT SUMMERY PT COGNITIVE/NEUROLOGICAL ASSESSMENT HAS REMAINED CONSISTANT THROUGHOUT THE NIGHT. PT IS ABLE TO CONVERSE DESPITE SLURRED SPEECH. HE DENIES ANY PAIN OR DISCOMFORT AT THIS TIME. VS WNL AT TIME OF THIS NOTE. FAMILY IN THE WAITING ROOM.
--- NOTE | 2021-07-24 06:30 | NUR ---
DR TELLEZ ARRIVED ON UNIT AND NOTIFIED ME THAT HE HAD DISCUSSED CODE STATUS W/ PT FAMILY AND THE DECISION WAS MADE FOR DNR. THE TRANSFER OF THE PT TO A HIGHER LEVEL OF CARE AT ANOTHER FACILITY IS ON HOLD PER THE FAMILY REQUEST. DNR OUTSIDE PT DOOR AND BRACELET ON PT RIGHT WRIST.
--- NOTE | 2021-07-24 11:24 | NUR ---
Spiritual Care Visit. Pt. is resting in bed, but respends when I introduce myself. Pt. welomes the visit. Nurses are working on getting BP vitals as we establish rapport. Though Pt. displays evidence of somnilence, he is responsive. Establish rapport. Bryce for Pt. Pt. verbalizes gratitude for the Spiritual Care visit.
[2021-07-24 16:45] LABS: Source, Urine Foley catheter
[2021-07-24 16:55] LABS: Appearance, Urine Hazy (Clear); Blood, Urine 3+ (Neg); Color, Urine Yellow (P-Yellow); Glucose Qualitative, Urine Neg (Neg); Ketones, Urine 3+ (Neg); Leukocyte Esterase, Urine 1+ (Neg); Nitrite, Urine Neg (Neg); Protein, Urine 2+ (Neg); Urobilinogen, Urine 1+ (Normal)
[2021-07-24 17:22] LABS: Bilirubin, Urine 1+ (Neg)
[2021-07-24 17:27] LABS: Bacteria Many /hpf; Mucus Mod (0-Heavy); Squamous Epithelial Cells Not Seen /hpf (Few)
--- NOTE | 2021-07-24 18:38 | NUR ---
END OF SHIFT SUMMARY PT. HAS BEEN RESTING MOST OF THE SHIFT. HE IS ALERT AND FOLLOWS COMMANDS. HE WAS CONFUSED THIS MORNING ABOUT WHERE HE WAS, WHAT TOWN HE WAS IN, AND HIS SITUATION. HE HAS LEFT SIDED WEAKENESS, LEFT EYE DROOP, TONGUE DEVIATION TO THE LEFT, IS UNABLE TO LIFT HIS LEFT LEG, RESPONDS TO PAIN STIMULUS IN LEFT LEG, AND HAS WEAKNESS. PT. FAILED HIS SPEECH EVALUATION AND IS TO REMAIN NPO. FAMILY WAS AT THE BEDSIDE DURING THE EVALUATION. SPEECH THERAPY WILL REASSESS TOMMORROW. FAMILY HAS BEEN AT THE BEDSIDE MOST OF THE SHIFT.
--- NOTE | 2021-07-24 19:15 | NUR ---
ASSUMED CARE. REPORT RECEIVED FROM TIMBO RN. PT RESTING IN BED AT THIS TIME, FAMILY AT BEDSIDE. ON ROOM AIR, SATS ABOVE 93%. IV ACCESS IN R/AC AND R/WRIST. D5 1/2 NS RUNNING AT 75 MLS/HR. SUBRAMANIAN CATHETER IN PLACE. VS STABLE ATT. WILL CONTINUE TO MONITOR.
--- NOTE | 2021-07-25 06:30 | NUR ---
SHIFT SUMMARY. PT RESTED QUIETYLY IN BED THROUGHOUT SHIFT. ON ROOM AIR, NS AT 75 ML/HR. IV IN R/AC, R/WRIST, WNL. SUBRAMANIAN CATHETER IN PLACE, 500 MLS DARK URINE OUT THIS SHIFT. PT AROUSABLE, NO NEURO CHANGES THIS SHIFT. SEE SHIFT ASSESSMENT FOR FURTHER DETAILS. WILL CONTINUE TO MONITOR AND REPORT OFF TO DAYSHIFT RN.
--- NOTE | 2021-07-25 13:30 | NUR ---
TRANSFER TO MEDICAL REPORT CALLED, ALL QUESTIONS ANSWERED. PT TAKEN TO ROOM 308 VIA BED. ALL MEDICATIONS AND PT BELONGINGS SENT WITH PT. PT FAMILY MEMBER TAKEN TO NEW ROOM WITH PT.
--- NOTE | 2021-07-25 14:26 | NUR ---
PT ARRIVED TO MEDICAL FLOOR AT 1330, [employer] FINISHER CALLED HANDOFF REPORT. PT SETTLED INTO ROOM, PT/FAMILY ORIENTED TO ROOM, CALL-LIGHT. IV IN LEFT AC WARM/RED/SWOLLEN. IV LEFT WRIST, PATENT FLUSHED W/ NS, INFUSING. VSS.
--- NOTE | 2021-07-26 07:32 | NUR ---
PATIENT SLEPT WELL THROUGHOUT THE NIGHT. SCOPOLAMINE PATCH APPLIED TO HELP WITH SECRETIONS WITH POSTIVE RESULT. BP 155/[address] GONZALEZ PATIENT TO TAKE HYDRALAZINE WHEN SBP>160 OR DBP >90. HYDRALIZNE GIVEN WITH BP IMPROVEMENT TO 148/78. AROUND 0600 PATIENT C/O PALPITATIONS AND FEELING LIKE HIS HEART IS RACING. APICAL PULSE 90 AND IRREGULAR. BP 170/80. DR. GONZALEZ NOTIFIED WITH ORDER TO D/C HYDRALAZINE AND GIVE LABETALOL. PATIENT ALSO C/O OF CHEST PRESSURE THAT RADIATES TO BACK AND RIGHT ARM. AT THIS TIME PATIENT NOTED TO BE ANXIOUS. FENTANYL GIVEN FOR PAIN AND DR. GONZALEZ MADE AWARE. BP PRIOR TO LABETALOL 147/82 HR 87. PATIENT NOTED TO BE SLEEPING AND PER DIMITRIGHTER AT BEDSIDE PATIENT WAS MORE COMFORTABLE AFTER FENTANYL AND DID NOT COMPLAIN FURTHER ABOUT HEART PALPITATIONS. LABETALOL NOT GIVEN DUE TO PATIENT IMPROVEMENT. PATIENT PLACED ON SPECIAL TRACKWORK BLACKSMITH DUE TO LABETOLOL PRN ORDER. PATIENT GRANDAUGHTER AT BEDSIDE UPDATED REGARDING PLAN.
--- NOTE | 2021-07-26 11:23 | NUR ---
Joint visit with Dr Carter and this PC RN. Pt resting in bed with his eyes closed. Family at bedside. Dr Carter provides update on Pt's condition and prognosis. Options for treatment discussed with family. Family elects comfort care. Education on comfort care philosophy given with V/U made by family. Family is requesting assistance with placing Pt into care facility with hospice services. Instructed caremanagement will assist with options on Wednesday concerning placement. Discussed hospice agencies to choose from. Family will consider agency options and report to caremanager on Wednesday. Offered therapeutic listening and answered questions. Family expresses appreciation and report no other concerns at this time. Placed comfort care order, comfort care order set and D/C maintenance medications per V/O from Dr Carter. Family requesting Pt remain NPO. Spoke with Primary RN Masha and discussed case. Palliative Care will remain available for symptom management and supportive visits.
--- NOTE | 2021-07-26 17:28 | NUR ---
END OF SHIFT SUMMARY: MD and pallilative care at bedside talking to pt/family, family has decided to go forward with comfort measures. Pt resting comfortably all day, no facial grimancing, air hunger, or pain reported by pt. No comfort meds given today. Oral care provided by staff & family. Pt repositioned Q2H. D/C'd IV fluids, pt had 1600mL UO this shift. No other concerns at this time.
--- NOTE | 2021-07-26 22:01 | NUR ---
PATIENT ON COMFORT MEASURES. FAMILY AT BEDSIDE ASSISTING WITH PATIENT CARE. PATIENT VERBALIZING HE IS COMFORTBALE. DID STATE HIS BACK HAS BEEN ITCHY. BACK WASHED AND LOTION APPLIED. PT VERBALIZED RELIEF. ORAL CARE PROVIDED BY FAMILY.
--- NOTE | 2021-07-27 04:31 | NUR ---
PATIENT DROWSY BUT AROUSABLE. ABLE TO VERBALIZE WHETHER HE WOULD LIKE TO BE TURNED AND HAVE ORAL CARE PERFOMED. COUPLE TIMES PATIENT REFUSED AND OTHER FAMILY DUE TO PATIENT RESTING COMFORTABLY. MEDICATED PER MAR FOR PAIN AND SECREATIONS. FAMILY INFORMED TO CALL IF PATIENT IN NEED OF PAIN/ANXIETY/SECREATION/AIR HUNGER MEDICATIONS. FAMILY REMAINED AT BEDSIDE AND ASSISTED WITH PATIENT CARE. PATIENT KEPT COMFORTABLE DURING THE SHIFT. AT THIS TIME 0431 DIL VERBALIZED THAT PATIENT HAS STARTED TO HAVE PERIODS OF APNEA. PATIENT DOES NOT APPEAR TO HAVE AIR HUNGER AT THIS TIME AND REINFORCED THE NEED TO NOTIFY STAFF IF PATIENT NEEDS MEDICATIONS TO KEEP HIM COMFORTABLE. PATIENT CLOSELY MONITORED TO ENSURE COMFORT.
--- NOTE | 2021-07-27 08:38 | NUR ---
Comfort Care Visit Pt resting in bed with his eyes closed. Pt appears comfortable with no S/S of distress at this time. Family at bedside and report no concerns at this time. Spoke with Primary RN Masha and discussed case. No concerns reported at this time. Palliative Care will remain available for symptom management and supportive visits.
--- NOTE | 2021-07-27 19:24 | NUR ---
END OF SHIFT SUMMARY: Pt on comfort care, family at bedside. Family providing oral care. Staff turning pt Q2H, cath care complete. Pt resting comfortably, no air hunger noted. Pt only c/o back pain, egg crate placed on bed, PRN Pain meds given 2x this shift, effective for comfort. No other concerns at this time.
[2021-07-27] MEDS ORDERED: DIGOX125 MC1 PO (23:36)
[2021-07-27] MEDS ORDERED: PANTOPRAZOLE SO40 M2 PO (23:40)
--- NOTE | 2021-07-28 05:47 | NUR ---
SHIFT SUMMARY PT DROWSY, WAKENS EASILY TO VERBAL STIMULI, MED PER MAR X 2 FOR C/O DISCOMFORT, REPOSITIONED Q 2 HRS FOR COMFORT AND TO PREVENT SKIN BREAKDOWN, EGG CRATE OVERLAY MATTRESS ON BED. PT RESTING CALMLY, FAMILY AT BEDSIDE, CONGESTED COUGH NOTED, BENSON ROOM AIR, NO DISTRESS NOTED. SUBRAMANIAN PATENT WITH COLUMBA URINE NOTED. COMFORT CARE MEASURES CONTINUED.
--- NOTE | 2021-07-28 13:11 | NUR ---
PT. FAMILY IS AT THE BEDSIDE AND HAS BEEN HELPING WITH TURNS AND ORAL CARE.
--- NOTE | 2021-07-28 16:07 | NUR ---
SHIFT SUMMARY PT. IS COMFORT CARE AND HAS BEEN SLEEPING MAJORITY OF THE DAY. PT. HAS FAMILY AT BEDSIDE, AND THEY HAVE BEEN HELPING WITH ORAL CARE, REPOSITIONING, AND OTHER COMFORT MEASURES. PT. IS AROUSABLE, COOPERATIVE, AND IS COMFORTABLE. MEDICATED PER EMAR W/ PT REQUEST.
--- NOTE | 2021-07-29 06:20 | NUR ---
SHIFT SUMMARY PT RESTED WELL, MED PER JUN X 1 FOR BACK/ABD PAIN AND ITCHING, PT REPORTED GOOD RELIEF WITH BOTH MEDS. FAMILY AT BEDSIDE FOR COMFORT, SUBRAMANIAN PATENT AND DRAINING COLUMBA URINE, PT BENSON SMALL AMOUNTS OF WATER AND JUICE, LUNGS COURSE, CONGESTED COUGH NOTED. COMFORT MEASURES CONTINUED.
--- NOTE | 2021-07-29 08:45 | NUR ---
PATIENT COMFORT CARE, FAMILY VERY HELPFUL AT BEDSIDE, REPOSITIONING PATIENT AND USING TOOTHETES. PATIENT GRIMACES WHEN IN PAIN, DENIES PAIN PRESENTLY, WCTM
--- NOTE | 2021-07-29 15:38 | NUR ---
Spiritual Care Visit Pt. displays evidnece of somnilence. Family members are present and welcome my visit. Clarified the present prognosis and plan with Pts. son. Family is doing a great job of caring for pt. Pt. wakes up at my greeting. Words of hope and pastoral encouaragement is given. Pt. displays evidence of a confidant hope. Prayed with Pt. and family. Family verbalized gratitude for the spiritual care visit.
--- NOTE | 2021-07-29 17:54 | NUR ---
family at bedside. pt stable.
--- NOTE | 2021-07-29 18:28 | NUR ---
FAMILY HELPFUL AT BEDSIDE, FAMILY PROVIDING CARE TO PATIENT, REPOSITIONED THROUGH OUT THE DAY, SON PROVIDED A BED BATH, MEDICATED WITH BENADRYL AND ROXICODONE, PATIENT SPEAKS IN A WHISPER, WCTM
--- NOTE | 2021-07-30 11:29 | NUR ---
Comfort Care Visit Pt resting in bed with his eyes closed. Pt appears comfortable with no S/S of distress at this time. Pt's son at bedside. Offered therapeutic listening as he discussed plan for Pt to D/C to his home tomorrow with hospice services. Son expresses appreciation of care Pt is receiving. No concerns reported at this time. Palliative Care will remain available.
--- NOTE | 2021-07-30 16:29 | NUR ---
SHIFT SUMMARY 11:15 ASSUMED CARE OF PT, RESTING QUIETLY WITH SON AT BS. PT ON COMFORT CARE, TO GO HOME TOMORROW ON HOSPICE. MEDICATED PER EMAR FOR C/O PAIN AND COMFORT. PER REPORT, ROXANOL AND BENEDRYL GIVEN. SON REPORTED THAT PT IS USUALLY COMFORTABLE FOR SEVERAL HOURS. PT IS NPO, ABLE TO ANSWER MOST NEEDED QUESTIONS AT THIS TIME. DENIED FURTHER NEEDS. CALL LT IN REACH.
--- NOTE | 2021-07-31 03:55 | NUR ---
SHIFT SUMMARY: FAMILY IN THE ROOM OVERNIGHT. PT MEDICATED FOR COMFORT NEEDED. PT REPOSITIONED FOR COMFORT NEEDED. PT AND FAMILY SLEPT MOST OF THE NIGHT. WILL CONTINUE TO MONITOR.
--- NOTE | 2021-07-31 09:05 | NUR ---
Comfort Care Visit Pt resting in bed with his eyes closed. No family at bedside at the moment. Pt appears comfortable with no S/S of distress at this time. Pt left undisturbed. Spoke with Primary RN Masha and discussed case. No concerns reported at this time. Palliative Care will remain available.
--- NOTE | 2021-07-31 12:41 | NUR ---
PT DISCHARGED HOME ON HOSPICE Pt sleeping comfortably this moring, no secretions, air hunger, pain observed. Discharge teaching provided to son, son verbilized understanding. Pt transferred via [facility], left medical unit at 1015am.
== END 2021-07-31 10:09 | disposition hospice, home (50) | DRG 64 ==
LOC: ER 16:36 → ICUW 18:59 → MEDS 07-25 13:21
PROVIDERS: Emergency Medicine; Internal Medicine; ADMIT Internal Medicine
PROC: 30283B1 Transfusion of Nonautologous 4-Factor Prothrombin Complex Concentrate into Vein, Percutaneous Approach (ICD-10-PCS; principal; 2021-07-23)
DX: I60.4 Nontraumatic subarachnoid hemorrhage from basilar artery (principal); G93.6 Cerebral edema; I69.354 Hemiplegia and hemiparesis following cerebral infarction affecting left non-dominant side; I67.4 Hypertensive encephalopathy; R47.81 Slurred speech; Z66 Do not resuscitate; Z51.5 Encounter for palliative care; R29.810 Facial weakness; R13.12 Dysphagia, oropharyngeal phase; R47.1 Dysarthria and anarthria; I48.91 Unspecified atrial fibrillation; I10 Essential (primary) hypertension; F41.9 Anxiety disorder, unspecified; I25.10 Atherosclerotic heart disease of native coronary artery without angina pectoris; Z95.0 Presence of cardiac pacemaker; Z95.2 Presence of prosthetic heart valve; I25.2 Old myocardial infarction; Z79.01 Long term (current) use of anticoagulants; Z88.0 Allergy status to penicillin; Z88.8 Allergy status to other drugs, medicaments and biological substances; Z79.82 Long term (current) use of aspirin; Z79.899 Other long term (current) drug therapy; Z95.5 Presence of coronary angioplasty implant and graft; Z98.890 Other specified postprocedural states; Z90.49 Acquired absence of other specified parts of digestive tract
CPT/HCPCS: 36415; 51702; 70450; 71045; 74230; 80048; 80053; 81001; 82947; 85025; 85027; 85610; 87086; 92610; 92611; 93005; 93010; 94640; 94664; 94760; 96365; 96375; 99285-25; A9270; J0360; J1200; J2060; J2405; J3010; J7030; J7042; J7060; J7168